=== PATIENT | female | born 1970 | race Caucasian/White ===

== ENCOUNTER 2025-03-18 18:13 | Emergency (ER) | payer BC ==
[~2025-03-18] VITALS: Ht 175.3 cm; Wt 60.0 kg
[2025-03-18 18:50] VITALS: O2SAT 100
[2025-03-18 20:36] VITALS: BP 120/75; PULSE 79; RESP 18; TEMP 37.1; O2SAT 99
== END 2025-03-18 21:06 | disposition left against medical advice (07) ==
LOC: ER 18:13
DX: R42 Dizziness and giddiness (principal); Z53.21 Procedure and treatment not carried out due to patient leaving prior to being seen by health care provider